=== PATIENT | female | born 1940 | race Hispanic/Latino ===

== ENCOUNTER 2017-11-14 10:16 | Emergency (ER) | payer OTHER ==
--- NOTE | 2017-11-14 11:06 | EDPHYS ---
Physician Documentation [facility] Name: Cydney Deluna Age: 77 yrs Sex: Female : 1940 Arrival Date: 11/14/2017 Time: 10:18 Bed 25 Private MD: None, None ED Physician Linden Land HPI: 11/14 11:43 This 77 yrs old Female presents to ER via Ambulatory with complaints of Pelvic jr8 Problem. 11:43 The patient presents with lesion to pelvic region. Onset: The symptoms/episode jr8 began/occurred gradually, 3 day(s) ago. Modifying factors: The symptoms are alleviated by nothing, the symptoms are aggravated by nothing. Associated signs and symptoms: Pertinent positives: itching. Severity of symptoms: At their worst the symptoms were mild, in the emergency department the symptoms are unchanged. The patient has not experienced similar symptoms in the past. The patient has not recently seen a physician. Historical: - Allergies: 10:34 PENICILLINS; aj 10:34 Sulfa (Sulfonamide Antibiotics); aj 10:34 Codeine; aj - Home Meds: 10:34 atorvastatin oral oral [Active]; bisoprolol-hydrochlorothiazide oral oral [Active]; aj - PMHx: 10:34 Hypertension; Hyperlipidemia; aj - Immunization history:: Adult Immunizations unknown. - Social history:: Smoking status: Patient/guardian denies using tobacco. - Ebola Screening: : Patient negative for fever greater than or equal to 101.5 degrees Fahrenheit, and additional compatible Ebola Virus Disease symptoms. ROS: 11:43 Eyes: Negative for injury, pain, redness, and discharge, ENT: Negative for injury, jr8 pain, and discharge, Neck: Negative for injury, pain, and swelling, Cardiovascular: Negative for chest pain, palpitations, and edema, Respiratory: Negative for shortness of breath, cough, wheezing, and pleuritic chest pain, Abdomen/GI: Negative for abdominal pain, nausea, vomiting, diarrhea, and constipation, Back: Negative for injury and pain, MS/Extremity: Negative for injury and deformity, Skin: Rash/lesion to pelvic region Neuro: Negative for headache, weakness, numbness, tingling, and seizure. Exam: 11:43 Cardiovascular: Regular rate and rhythm with a normal S1 and S2. No gallops, murmurs, jr8 or rubs. Normal PMI, no JVD. No pulse deficits. Respiratory: Lungs have equal breath sounds bilaterally, clear to auscultation and percussion. No rales, rhonchi or wheezes noted. No increased work of breathing, no retractions or nasal flaring. Abdomen/GI: Soft, non-tender, with normal bowel sounds. No distension or tympany. No guarding or rebound. No evidence of tenderness throughout. Back: No spinal tenderness. No costovertebral tenderness. Full range of motion. Skin: Warm, dry with normal turgor. Normal color with no rashes, no lesions, and no evidence of cellulitis. MS/ Extremity: Pulses equal, no cyanosis. Neurovascular intact. Full, normal range of motion. Neuro: Awake and alert, GCS 15, oriented to person, place, time, and situation. Cranial nerves II-XII grossly intact. Motor strength 5/5 in all extremities. Sensory grossly intact. Cerebellar exam normal. Normal gait. 11:43 : Pelvic Exam: External exam: is normal, small 5 mm dark lesion noted to right gluteal cleft region on right side just adjacent to labial region. No fluctuance felt. soft, mild excoriation noted. No pustule seen. Non vesicular , no appreciated Bartholin's cyst, no erythema, not excoriated, no evidence of foreign body, no ulcerations, no warts seen. Vital Signs: 10:34 BP 178 / 88; Pulse 56; Resp 19; Temp 98.0; Pulse Ox 96% on R/A; Weight 56.25 kg; Height aj 4 ft. 11 in. (149.86 cm); 10:34 Body Mass Index 25.04 (56.25 kg, 149.86 cm) aj MDM: 10:44 Patient medically screened. 8 11:02 Data reviewed: vital signs, nurses notes, and as a result, I will discharge patient. jr8 Data interpreted: Pulse oximetry: on room air is 96 %. Interpretation: normal. Counseling: I had a detailed discussion with the patient and/or guardian regarding: the historical points, exam findings, and any diagnostic results supporting the discharge/admit diagnosis, the need for outpatient follow up, for definitive care, a re dye hand, to return to the emergency department if symptoms worsen or persist or if there are any questions or concerns that arise at home. ED course: Discussed with patient that it does not appear to be a comodo or abscess. Slight excoriation to top of the lesion. Will treat with bactroban. If it does not improve within a few days needs to f/u with dermatology . Administered Medications: No medications were administered Disposition: 11/14/17 11:05 Discharged to Home. Impression: Rash and other nonspecific skin eruption. - Condition is Stable. - Discharge Instructions: Rash. - Prescriptions for Bactroban 2 % Topical Ointment - Apply to affected area 1 application by TOPICAL route every 12 hours; 30 gram. - Medication Reconciliation Form, Thank You Letter, Antibiotic Education, Prescription Opioid Use form. - Follow up: Private Physician; When: 5 - 6 days; Reason: Recheck today's complaints, Continuance of care, Re-evaluation by your physician. - Problem is new. - Symptoms have improved. Addendum: 11/16/2017 13:40 Co-signature as Attending Physician, Linden Land MD. g s Signatures: Makayla Posada RN RN ajPau Matos RN RN aj Yash Bradford PA PA jr8 Linden Land MD MD Corrections: (The following items were deleted from the chart) 11/14 11:28 11:05 11/14/2017 11:05 Discharged to Home. Impression: Rash and other nonspecific skin aj1 eruption. Condition is Stable. Forms are Medication Reconciliation Form, Thank You Letter, Antibiotic Education, Prescription Opioid Use. Follow up: Private Physician; When: 5 - 6 days; Reason: Recheck today's complaints, Continuance of care, Re-evaluation by your physician. Problem is new. Symptoms have improved. jr8
--- NOTE | 2017-11-14 11:06 | ER ---
Nurse's Notes [facility] Name: Cydney Deluna Age: 77 yrs Sex: Female : 1940 Arrival Date: 11/14/2017 Time: 10:18 Bed 25 Private MD: None, None Diagnosis: Rash and other nonspecific skin eruption Presentation: 11/14 10:33 Presenting complaint: Patient states: Itchy spot next to right labia majora that aj started 3 days ago. Transition of care: patient was not received from another setting of care. Onset of symptoms was November 11, 2017. Risk Assessment: Do you want to hurt yourself or someone else? Patient reports no desire to harm self or others. Care prior to arrival: None. 10:33 Method Of Arrival: Ambulatory aj 10:33 Acuity: BECCA 4 aj 11:27 Initial Sepsis Screen: Does the patient meet any 2 criteria? No. Patient's initial aj1 sepsis screen is negative. Does the patient have a suspected source of infection? No. Patient's initial sepsis screen is negative. Triage Assessment: 10:34 General: Appears in no apparent distress. comfortable, Behavior is calm, cooperative, aj appropriate for age. Pain: Denies pain. Neuro: Level of Consciousness is awake, alert, obeys commands, Oriented to person, place, time, situation, Appropriate for age. Respiratory: Airway is patent Respiratory effort is even, unlabored, Respiratory pattern is regular, symmetrical. : Reports itching to right labia majora. Derm: Skin is intact, is healthy with good turgor, Skin is pink, warm \T\ dry. normal. Historical: - Allergies: 10:34 PENICILLINS; aj 10:34 Sulfa (Sulfonamide Antibiotics); aj 10:34 Codeine; aj - Home Meds: 10:34 atorvastatin oral oral [Active]; bisoprolol-hydrochlorothiazide oral oral [Active]; aj - PMHx: 10:34 Hypertension; Hyperlipidemia; aj - Immunization history:: Adult Immunizations unknown. - Social history:: Smoking status: Patient/guardian denies using tobacco. - Ebola Screening: : Patient negative for fever greater than or equal to 101.5 degrees Fahrenheit, and additional compatible Ebola Virus Disease symptoms. Screenin:24 Abuse screen: Denies threats or abuse. Denies injuries from another. Nutritional aj1 screening: No deficits noted. Tuberculosis screening: No symptoms or risk factors identified. Fall Risk None identified. Assessment: 11:24 General: Appears in no apparent distress. comfortable. Pain: Denies pain. Neuro: Level aj1 of Consciousness is awake, alert, obeys commands, Oriented to person, place, time, situation. Cardiovascular: Patient's skin is warm and dry. Respiratory: Airway is patent Respiratory effort is even, unlabored, Respiratory pattern is regular, symmetrical. GI: No signs and/or symptoms were reported involving the gastrointestinal system. : Reports vaginal itching. EENT: No signs and/or symptoms were reported regarding the EENT system. Derm: No signs and/or symptoms reported regarding the dermatologic system. Skin is pink, warm \T\ dry. normal. Musculoskeletal: No signs and/or symptoms reported regarding the musculoskeletal system. Circulation, motion, and sensation intact. Vital Signs: 10:34 BP 178 / 88; Pulse 56; Resp 19; Temp 98.0; Pulse Ox 96% on R/A; Weight 56.25 kg; Height aj 4 ft. 11 in. (149.86 cm); 10:34 Body Mass Index 25.04 (56.25 kg, 149.86 cm) aj ED Course: 10:18 Patient arrived in ED. sb2 10:19 None, None is Private Physician. sb2 10:34 Triage completed. aj 10:34 Arm band placed on right wrist. Patient placed in an exam room. aj 10:44 Yash Bradford PA is PHCP. jr8 10:44 Linden Land MD is Attending Physician. jr8 10:51 Makayla Posada, RN is Primary Nurse. aj1 11:05 Assist provider with pelvic exam: Performed by Yash LYNNE. aj1 11:24 Patient has correct armband on for positive identification. Bed in low position. Call aj1 light in reach. 11:24 No provider procedures requiring assistance completed. Patient did not have IV access aj1 during this emergency room visit. Administered Medications: No medications were administered Outcome: 11:05 Discharge ordered by . jr8 11:24 Discharged to home aj1 11:24 Condition: good 11:24 Discharge instructions given to patient, Instructed on discharge instructions, follow up and referral plans. medication usage, Demonstrated understanding of instructions, follow-up care, medications, Prescriptions given X 1. 11:28 Patient left the ED. aj1 Signatures: Makayla Posada RN RN aj1 Pau Silva RN RN aj Yash Bradford PA PA jr8 Milagros Balderas2
[2017-11-14 11:34] VITALS: BP 178/88; TEMP 98; O2SAT 96
== END 2017-11-14 11:28 | disposition home or self-care (01) ==
LOC: ER 10:16
DX: R21 Rash and other nonspecific skin eruption (principal); I10 Essential (primary) hypertension; E78.5 Hyperlipidemia, unspecified; Z88.0 Allergy status to penicillin; Z88.2 Allergy status to sulfonamides; Z88.5 Allergy status to narcotic agent
CPT/HCPCS: 99283

== ENCOUNTER 2018-03-19 10:23 | Emergency (ER) | payer OTHER ==
--- NOTE | 2018-03-19 11:06 | EDPHYS ---
Physician Documentation [facility] Name: Cydney Deluna Age: 78 yrs Sex: Female : 1940 Arrival Date: 03/19/2018 Time: 10:27 Bed 20 Private MD: None, None ED Physician Carlos Enrique Ayon HPI: 03/19 11:05 This 78 yrs old Female presents to ER via Ambulatory with complaints of Rash. kb 11:05 The patient's rash thought to be caused by an unknown cause. The rash is located on the kb under right breast. 11:05 The rash can be described as vesicular. Onset: The symptoms/episode began/occurred kb yesterday. Associated signs and symptoms: Pertinent positives: itching. Severity of symptoms: At their worst the symptoms were moderate in the emergency department the symptoms are unchanged. The patient has not experienced similar symptoms in the past. The patient has not recently seen a physician. Historical: - Allergies: 10:35 Codeine; aa5 10:35 PENICILLINS; aa5 10:35 Sulfa (Sulfonamide Antibiotics); aa5 - PMHx: 10:35 Hyperlipidemia; Hypertension; aa5 - PSHx: 10:35 Hysterectomy; Appendectomy; aa5 - Immunization history:: Pneumococcal vaccine is not up to date, Flu vaccine is not up to date. - Social history:: Smoking status: Patient/guardian denies using tobacco. - Ebola Screening: : No symptoms or risks identified at this time. ROS: 11:03 Constitutional: Negative for fever, chills, and weight loss, Cardiovascular: Negative kb for chest pain, palpitations, and edema, Respiratory: Negative for shortness of breath, cough, wheezing, and pleuritic chest pain, Abdomen/GI: Negative for abdominal pain, nausea, vomiting, diarrhea, and constipation, MS/Extremity: Negative for injury and deformity, Neuro: Negative for headache, weakness, numbness, tingling, and seizure. 11:03 Skin: Positive for rash, of the under right breast. Exam: 11:04 Constitutional: This is a well developed, well nourished patient who is awake, alert, kb and in no acute distress. Head/Face: Normocephalic, atraumatic. Chest/axilla: Normal chest wall appearance and motion. Nontender with no deformity. No lesions are appreciated. Cardiovascular: Regular rate and rhythm with a normal S1 and S2. No gallops, murmurs, or rubs. Normal PMI, no JVD. No pulse deficits. Respiratory: Lungs have equal breath sounds bilaterally, clear to auscultation and percussion. No rales, rhonchi or wheezes noted. No increased work of breathing, no retractions or nasal flaring. Abdomen/GI: Soft, non-tender, with normal bowel sounds. No distension or tympany. No guarding or rebound. No evidence of tenderness throughout. MS/ Extremity: Pulses equal, no cyanosis. Neurovascular intact. Full, normal range of motion. Neuro: Awake and alert, GCS 15, oriented to person, place, time, and situation. Cranial nerves II-XII grossly intact. Motor strength 5/5 in all extremities. Sensory grossly intact. Cerebellar exam normal. Normal gait. 11:04 Skin: rash a moderate rash is noted, rash can be described as vesicular, consistent with zoster, on the under right breast. Vital Signs: 10:35 BP 180 / 98; Pulse 54; Resp 16 S; Temp 98.9(O); Pulse Ox 98% on R/A; Weight 58.97 kg aa5 (R); Height 4 ft. 11 in. (149.86 cm) (R); Pain 0/10; 10:35 Body Mass Index 26.26 (58.97 kg, 149.86 cm) aa5 MDM: 10:39 Patient medically screened. kb 11:03 Data reviewed: vital signs, nurses notes. Data interpreted: Pulse oximetry: on room air kb is 98 %. Interpretation: normal. Counseling: I had a detailed discussion with the patient and/or guardian regarding: the historical points, exam findings, and any diagnostic results supporting the discharge/admit diagnosis, the need for outpatient follow up, a family practitioner, to return to the emergency department if symptoms worsen or persist or if there are any questions or concerns that arise at home. Administered Medications: No medications were administered Disposition: 11:35 Co-signature as Attending Physician, Carlos Enrique Ayon MD. rn Disposition: 03/19/18 11:06 Discharged to Home. Impression: Zoster [herpes zoster]. - Condition is Stable. - Discharge Instructions: Shingles. - Prescriptions for Valtrex 1 g Oral Tablet - take 1 tablet by ORAL route every 8 hours for 7 days; 21 tablet. - Medication Reconciliation Form, Thank You Letter, Antibiotic Education, Prescription Opioid Use form. - Follow up: Emergency Department; When: As needed; Reason: Worsening of condition. Follow up: Private Physician; When: 2 - 3 days; Reason: Recheck today's complaints, Continuance of care, Re-evaluation by your physician. Signatures: Ceci Viera, LEE-C PLATE WORKER-Pau Dunn RN Carlos Enrique Carlos MD MD rn Calderon, Audri, RN RN aa5 Corrections: (The following items were deleted from the chart) 11:15 11:06 03/19/2018 11:06 Discharged to Home. Impression: Zoster [herpes zoster]. aj Condition is Stable. Forms are Medication Reconciliation Form, Thank You Letter, Antibiotic Education, Prescription Opioid Use. Follow up: Emergency Department; When: As needed; Reason: Worsening of condition. Follow up: Private Physician; When: 2 - 3 days; Reason: Recheck today's complaints, Continuance of care, Re-evaluation by your physician. kb
--- NOTE | 2018-03-19 11:06 | ER ---
Nurse's Notes [facility] Name: Cydney Deluna Age: 78 yrs Sex: Female : 1940 Arrival Date: 03/19/2018 Time: 10:27 Bed 20 Private MD: None, None Diagnosis: Zoster [herpes zoster] Presentation: 03/19 10:33 Presenting complaint: Patient states: "I have a rash under my right breast that I aa5 noticed yesterday". Pt denies pain, reports rash it's itchy. 10:33 Transition of care: patient was not received from another setting of care. Onset of aa5 symptoms was March 2018. Risk Assessment: Do you want to hurt yourself or someone else? Patient reports no desire to harm self or others. Initial Sepsis Screen: Does the patient meet any 2 criteria? No. Patient's initial sepsis screen is negative. Does the patient have a suspected source of infection? No. Patient's initial sepsis screen is negative. Care prior to arrival: None. 10:33 Method Of Arrival: Ambulatory aa5 10:33 Acuity: BECCA 5 aa5 Historical: - Allergies: 10:35 Codeine; aa5 10:35 PENICILLINS; aa5 10:35 Sulfa (Sulfonamide Antibiotics); aa5 - PMHx: 10:35 Hyperlipidemia; Hypertension; aa5 - PSHx: 10:35 Hysterectomy; Appendectomy; aa5 - Immunization history:: Pneumococcal vaccine is not up to date, Flu vaccine is not up to date. - Social history:: Smoking status: Patient/guardian denies using tobacco. - Ebola Screening: : No symptoms or risks identified at this time. Screenin:00 Abuse screen: Denies threats or abuse. Denies injuries from another. Nutritional aj screening: No deficits noted. Tuberculosis screening: No symptoms or risk factors identified. Fall Risk None identified. Assessment: 11:00 General: Appears in no apparent distress. comfortable, Behavior is calm, cooperative, aj appropriate for age. Pain: Denies pain. Neuro: Level of Consciousness is awake, alert, obeys commands, Oriented to person, place, time, situation, Appropriate for age. Respiratory: Airway is patent Respiratory effort is even, unlabored, Respiratory pattern is regular, symmetrical. Derm: Rash noted that is vesicular, on right upper quadrant. Vital Signs: 10:35 BP 180 / 98; Pulse 54; Resp 16 S; Temp 98.9(O); Pulse Ox 98% on R/A; Weight 58.97 kg aa5 (R); Height 4 ft. 11 in. (149.86 cm) (R); Pain 0/10; 10:35 Body Mass Index 26.26 (58.97 kg, 149.86 cm) aa5 ED Course: 10:27 Patient arrived in ED. mr 10:27 None, None is Private Physician. mr 10:36 Triage completed. aa5 10:36 Arm band placed on. aa5 10:39 Ceci Viera FNP-C is PHCP. kb 10:39 Carlos Enrique Ayon MD is Attending Physician. kb 11:00 Pau Silva, RN is Primary Nurse. aj 11:00 Patient has correct armband on for positive identification. Bed in low position. Pulse aj ox on. NIBP on. 11:00 No provider procedures requiring assistance completed. Patient did not have IV access aj during this emergency room visit. Administered Medications: No medications were administered Outcome: 11:06 Discharge ordered by . kb 11:15 Discharged to home ambulatory. aj 11:15 Condition: good 11:15 Discharge instructions given to patient, Instructed on discharge instructions, follow up and referral plans. medication usage, wound care, Demonstrated understanding of instructions, follow-up care, medications, wound care, Prescriptions given X 1. 11:15 Patient left the ED. aj Signatures: Ceci Viera FNP-C FNP-Pau Dunn RN RN aj Rivera Tanya Carleen Zavala RN VICTORIANO aa5 Corrections: (The following items were deleted from the chart) 11:01 11:00 Derm: Rash noted that is vesicular, on diaphragm feng toney
[2018-03-19 11:19] VITALS: BP 180/98; TEMP 98.9; O2SAT 98
== END 2018-03-19 11:15 | disposition home or self-care (01) ==
LOC: ER 10:23
DX: B02.9 Zoster without complications (principal); Z88.6 Allergy status to analgesic agent; Z88.0 Allergy status to penicillin; Z88.2 Allergy status to sulfonamides
CPT/HCPCS: 99283

== ENCOUNTER 2024-03-30 19:35 | Inpatient (IN) | payer OTHER ==
[2024-03-30 20:03] LABS: Absolute Eosinophils 0.1 K/uL (0-0.5); Absolute Lymphocytes (CBC) 1.1 K/uL (0.7-4.9); Absolute Monocytes 0.3 K/uL (0.1-1.3); Absolute Neutrophil 2.8 K/uL (1.8-8.0); Eosinophils % 1.5 % (0-4.4); Hemoglobin 11.3 g/dL (12.0-15.0); Lymphocytes % 26.1 % (15.3-44.8); MCH 30.5 pg (27.0-35.0); MCHC 34.1 g/dL (32.0-36.0); MCV 89.3 fL (80-100); MPV 8.4 fL (7.6-11.3); Monocytes % 6.6 % (3.3-12.3); Neutrophils % 64.8 % (41.7-73.7); Nucleated Red Blood Cells % 0.1 % (0-0); Platelets 238 thou/uL (152-406); Red Cell Distribution Width 13.9 % (12.1-15.2)
[2024-03-30 20:40] LABS: Anion Gap 9.4 mEq/L (5.0-15.0); Potassium 3.4 mEq/L (3.5-5.1)
--- NOTE | 2024-03-30 22:02 | RAD REPORT ---
EXAM: CT brain without contrast HISTORY: GLF COMPARISON: None TECHNIQUE: Multiple contiguous axial images were obtained and a CT of the brain without contrast. Sag ittal and coronal reformats were performed. FINDINGS:No evidence of hydrocephalus, intracranial hemorrhage, or extra-axial fluid collection. Mild brain atrophy with mild periventricular and deep white matter chronic microvascular ischemic ch anges present. The calvarium is intact. The visualized paranasal sinuses and mastoid air cells are essentially clear . IMPRESSION: No evidence of acute intracranial abnormality. Presumed sequelae of chronic small vessel ischemic changes as above. EXAM: CT of the cervical spine without contrast HISTORY: GLF COMPARISON: None TECHNIQUE: Multiple contiguous axial images were obtained in a CT of the cervical spine without contr ast. Sagittal and coronal reformats were performed. FINDINGS: The vertebral bodies demonstrate normal height and alignment. No evidence of acute fracture or subluxation.. Mild degenerative changes are present throughout the cervical spine. No prevertebral soft tissue swelling is seen. The posterior facets are well aligned. Normal alignment of the skull base with the cervical spine is seen. The lung apices are unremarkable. IMPRESSION: No evidence of acute osseous abnormality of the cervical spine. Mild degenerative changes throughout the cervical spine.
--- NOTE | 2024-03-30 22:08 | RAD REPORT ---
EXAMINATION: CT PELVIS WITHOUT CONTRAST CLINICAL INDICATION: Female, 84 years old.Ground-level fall TECHNIQUE: CT pelvis was performed, without IV contrast, as per department protocol. Axial, sagittal and coronal reconstructions were obtained. One or more of the following dose reduction techniques were used: Automated exposure control, adjustment of the mA and/or kV according to patient size, and/ or iterative reconstruction. Unless otherwise specified, incidental findings do not require dedicated imaging follow-up. COMPARISON: No prior exam. FINDINGS: The lack of intravenous contrast limits the sensitivity of this exam for evaluation of solid visceral organs, vascular structures, and retroperitoneum. MUSCULOSKELETAL: Mildly displaced right superior pubic ramus fracture near the junction with the pubi c bone. Chronic appearing mildly displaced nonhealed fracture of the left inferior pubic ramus. URINARY SYSTEM: No abnormalities of the included kidneys and ureters. Urinary bladder is unremarkable . GASTROINTESTINAL TRACT: Included small bowel is normal in caliber. No wall thickening or bowel inflam matory changes. LYMPH NODES: No lymphadenopathy. ABDOMINAL AORTA AND OTHER VESSELS: Normal caliber aorta and IVC. ADDITIONAL FINDINGS: Soft tissue swelling and nonlocalized hematoma adjacent to the fracture, extendi ng along the right pelvic sidewall and extraperitoneal space. IMPRESSION: Mildly displaced right superior pubic ramus fracture. Adjacent soft tissue swelling and nonlocalized hematoma as above.
--- NOTE | 2024-03-30 22:12 | RAD REPORT ---
EXAMINATION: CT LUMBAR SPINE WITHOUT CONTRAST CLINICAL INDICATION: Female, 84 years old. GLF TECHNIQUE: Axial CT images were obtained through the lumbar spine in soft tissue and bone windows wit hout intravenous contrast. Coronal and Sagittal reformatted images were created from the data set. One or more of the following dose reduction techniques were used: Automated exposure control, adjustm ent of the mA and/ or kV according to patient size, and/or iterative reconstruction. Unless otherwise specified, incidental findings do not require dedicated imaging follow-up. COMPARISON: No prior exam. FINDINGS: For purposes of this dictation, it is assumed that there are 5 non rib-bearing lumbar type vertebrae, and the most caudal fully segmented lumbar vertebra is labeled L5. ALIGNMENT: The lumbar spine demonstrates normal alignment without scoliosis or spondylolisthesis. BONES: Mildly displaced and comminuted fractures involving S1 near the junction with the left sacral ala, extending towards the. Margin of the S1-2 neural foramen. DISCS: Intervertebral disc space heights are maintained. Mild degenerative changes with posterior dis c bulges at L3-4 through L5-S1. LEVELS: No significant spinal canal or neural foraminal stenosis. No visualized abnormality within th e spinal canal. SOFT TISSUE: No soft tissue abnormalities. IMPRESSION: Mildly displaced and comminuted fractures involving S1 near the junction with the left sacral ala.
--- NOTE | 2024-03-30 22:41 | EDPHYS ---
Physician Documentation [facility] Name: Cydney Deluna Age: 84 yrs Sex: Female : 1940 Arrival Date: 03/30/2024 Time: 19:35 Bed 4 Private MD: ED Physician Prosper Wasserman HPI: 03/30 19:48 This 84 yrs old Female presents to ER via EMS with complaints of Fall Injury. ec2 19:48 Patient arrives today for evaluation after ground-level fall. States that she struck ec2 her head. No LOC, not on blood thinners, complaining of head pain, low back pain as well as hip pain.. Historical: - Allergies: 19:47 Codeine; bp 19:47 PENICILLINS; bp 19:47 Sulfa (Sulfonamide Antibiotics); bp - PMHx: 19:47 Hyperlipidemia; Hypertension; Dementia; bp - PSHx: 19:47 None; bp - Immunization history:: Adult Immunizations up to date. - Infectious Disease History:: Denies. - Immunization history: Last tetanus immunization: - up to date. - Social history:: Smoking status: Patient denies any tobacco usage or history of. ROS: 19:48 Constitutional: as per hpi ec2 Exam: 19:48 Constitutional: GEN: No acute distress HEENT: -Head: no deformities -Eyes: EOMI CV: ec2 regular rate LUNGS: no respiratory distress ABD: non-tender SKIN: no wounds appreciated MSK: No C/T/L spine deformities, L-spine TTP, right pelvis TTP RUE w/o bony deformity LUE w/o bony deformity RLE w/o bony deformity LLE w/o bony deformity NEURO: moves all extremities equally, GCS 15 (E4, V5, M6) Vital Signs: 19:46 BP 166 / 86; Pulse 98; Resp 16; Temp 98.3; Pulse Ox 95% on R/A; Weight 61.23 kg; Height bp 4 ft. 11 in. ; Pain 3/10; 20:00 BP 159 / 68; Pulse 67; Resp 18; Pulse Ox 96% on R/A; al5 20:30 BP 147 / 64; Pulse 78; Resp 18; Pulse Ox 95% on R/A; al5 21:00 BP 151 / 73; Pulse 70; Resp 18; Pulse Ox 95% on R/A; al5 22:30 BP 165 / 84; Pulse 75; Resp 16; Pulse Ox 97% ; dd2 23:20 BP 186 / 77; Pulse 70; Resp 17; Pulse Ox 96% ; dd2 03/31 01:15 BP 163 / 78; Pulse 74; Resp 16; Pulse Ox 97% ; dd2 03:00 BP 177 / 80; Pulse 75; Resp 16; Pulse Ox 97% ; dd2 03:00 BP 159 / 76; Pulse 72; Resp 16; Pulse Ox 96% ; dd2 03/30 19:46 Body Mass Index 27.27 (61.23 kg, 149.86 cm) bp 03/30 19:46 Pain Scale: Adult bp [place] Com[place] Score: 03/30 19:46 Eye Response: spontaneous(4). Motor Response: obeys commands(6). Verbal Response: bp confused(4). Total: 14. Trauma Score (Adult): 19:46 Eye Response: spontaneous(1); Verbal Response: confused(1); Motor Response: obeys bp commands(2); Systolic BP: > 89 mm Hg(4); Respiratory Rate: 10 to 29 per min(4); [place] Score: 14; Trauma Score: 12 MDM: 19:39 Medical Screening Exam initiated ec2 19:48 Data reviewed: vital signs. ED course: Patient arrives today for evaluation of her ec2 ground-level fall. Examination remarkable for MSK findings as noted above. Will obtain CT imaging to evaluate for bony pathology.. 22:13 ED course: EXAM: CT brain without contrast HISTORY: GLF COMPARISON: None TECHNIQUE: sp4 Multiple contiguous axial images were obtained and a CT of the brain without contrast. Sagittal and coronal reformats were performed. FINDINGS:No evidence of hydrocephalus, intracranial hemorrhage, or extra-axial fluid collection. Mild brain atrophy with mild periventricular and deep white matter chronic microvascular ischemic changes present. The calvarium is intact. The visualized paranasal sinuses and mastoid air cells are essentially clear. IMPRESSION: No evidence of acute intracranial abnormality. Presumed sequelae of chronic small vessel ischemic changes as above. EXAM: CT of the cervical spine without contrast HISTORY: GLF COMPARISON: None TECHNIQUE: Multiple contiguous axial images were obtained in a CT of the cervical spine without contrast. Sagittal and coronal reformats were performed. FINDINGS: The vertebral bodies demonstrate normal height and alignment. No evidence of acute fracture or subluxation.. Mild degenerative changes are present throughout the cervical spine. No prevertebral soft tissue swelling is seen. The posterior facets are well aligned. Normal alignment of the skull base with the cervical spine is The lung apices are unremarkable. IMPRESSION: No evidence of acute osseous abnormality of the cervical spine. Mild degenerative changes throughout the cervical spine. . ED course: EXAMINATION: CT PELVIS WITHOUT CONTRAST CLINICAL INDICATION: Female, 84 years old.Ground-level fall TECHNIQUE: CT pelvis was performed, without IV contrast, as per department protocol. Axial, sagittal and coronal reconstructions were obtained. One or more of the following dose reduction techniques were used: Automated exposure control, adjustment of the mA and/or kV according to patient size, and/or iterative reconstruction. Unless otherwise specified, incidental findings do not require dedicated imaging follow-up. COMPARISON: No prior exam. FINDINGS: The lack of intravenous contrast limits the sensitivity of this exam for evaluation of solid visceral organs, vascular structures, and retroperitoneum. MUSCULOSKELETAL: Mildly displaced right superior pubic ramus fracture near the junction with the pubic bone. Chronic appearing mildly displaced nonhealed fracture of the left inferior pubic ramus. URINARYSYSTEM: No abnormalities of the included kidneys and ureters. Urinary bladder is unremarkable. GASTROINTESTINAL TRACT: Included small bowel is normal in caliber. No wall thickening or bowel inflammatory changes. LYMPH NODES: No lymphadenopathy. ABDOMINAL AORTA AND OTHER VESSELS: Normal caliber aorta and IVC. ADDITIONAL FINDINGS: Soft tissue swelling and nonlocalized hematoma adjacent to the fracture, extending along the right pelvic sidewall and extraperitoneal space. IMPRESSION: Mildly displaced right superior pubic ramus fracture. Adjacent soft tissue swelling and nonlocalized hematoma as above. . 22:15 ED course: EXAMINATION: CT LUMBAR SPINE WITHOUT CONTRAST CLINICAL INDICATION: Female, sp4 84 years old. GLF TECHNIQUE: Axial CT images were obtained through the lumbar spine in soft tissue and bone windows without intravenous contrast. Coronal and Sagittal reformatted images were created from the data set. One or more of the following dose reduction techniques were used: Automated exposure control, adjustment of the mA and/ or kV according to patient size, and/or iterative reconstruction. Unless otherwise specified, incidental findings do not require dedicated imaging follow-up. COMPARISON: No prior exam. FINDINGS: For purposes of this dictation, it is assumed that there are 5 non rib-bearing lumbar type vertebrae, and the most caudal fully segmented lumbar vertebra is labeled L5. ALIGNMENT: The lumbar spine demonstrates normal alignment without scoliosis or spondylolisthesis. BONES: Mildly displaced and comminuted fractures involving S1 near the junction with the left sacral ala, extending towards the. Margin of the S1-2 neural foramen. DISCS: Intervertebral disc space heights are maintained. Mild degenerative changes with posterior disc bulges at L3-4 through L5-S1. LEVELS: No significant spinal canal or neural foraminal stenosis. No visualized abnormality within the spinal canal. SOFT TISSUE: No soft tissue abnormalities. IMPRESSION: Mildly displaced and comminuted fractures involving S1 near the junction with the left sacral ala. . 22:35 Differential diagnosis: abrasion, closed head injury, contusion, fracture, laceration, sp4 multiple trauma, sprain, strain. Consideration of Admission/Observation Patient was admitted/placed on observation. Escalation of care including admission/observation considered. Management of patient was discussed with the following: Hospitalist: Adilson PIERRE . Splitter Operator: Jeremías PIERRE . ED course: Patient apparently sustained right superior pubic ramus fracture with some displacement and also left S1 fracture near the sacral Ala. patient not able to ambulate unassisted. Will request admission for physical therapy and orthopedic assessment.. 03/30 19:45 Order name: CBC with Diff; Complete Time: 21:15 ec2 03/30 19:45 Order name: BMP; Complete Time: 21:15 ec2 03/30 19:45 Order name: UAM ec2 03/30 22:35 Order name: PT-INR; Complete Time: 03:27 sp4 03/30 23:10 Order name: Urinalysis w/ reflexes EDMS 03/30 23:10 Order name: CBC with Automated Diff EDMS 03/30 23:10 Order name: CBC with Automated Diff EDMS 03/30 23:10 Order name: Comprehensive Metabolic Panel EDMS 03/30 23:10 Order name: Comprehensive Metabolic Panel EDMS 03/30 23:10 Order name: Magnesium EDMS 03/30 23:10 Order name: Magnesium EDMS 03/30 23:10 Order name: Phosphorus EDMS 03/30 23:10 Order name: Phosphorus EDMS 03/30 19:45 Order name: CT Head C Spine; Complete Time: 22:37 ec2 03/30 19:45 Order name: CT Pelvis wo Cont; Complete Time: 22:37 ec2 03/30 19:45 Order name: CT Lumbar Spine Wo Con; Complete Time: 22:37 ec2 03/30 20:07 Order name: Misc. Order: recollect green top ; Complete Time: 20:16 kmf Administered Medications: 23:19 Drug: Ondansetron PO 4 mg PO once Route: PO; dd2 23:49 Follow up: Response: No adverse reaction dd2 23:20 Drug: HYDROcodone-acetaminophen PO 5 mg-325 mg 2 tabs PO once Route: PO; dd2 23:49 Follow up: Response: No adverse reaction dd2 23:20 Drug: Methocarbamol PO 1500 mg PO once Route: PO; dd2 23:49 Follow up: Response: No adverse reaction dd2 03/31 03:41 Drug: Geodon IM 20 mg IM once Route: IM; Site: right deltoid; al5 03:56 Follow up: Response: No adverse reaction dd2 04:16 Follow up: Response: No adverse reaction; RASS: Agitated (+2) al5 04:16 Drug: Diazepam PO 5 mg PO once Route: PO; al5 04:46 Follow up: Response: No adverse reaction dd2 Disposition Summary: 03/30/24 22:40 Hospitalization Ordered Notes: Hospitalization Status: Inpatient Admission sp4 Provider: Arias De Anda spEvin Condition: Stable sp4 Problem: new sp4 Symptoms: have improved sp4 Bed/Room Type: Standard sp4 Location: Telemetry/MedSurg (Inpatient)(03/31/24 18:37) Room Assignment: [facility](03/31/24 21:11) kl Diagnosis - Right superior pubic ramus fracture with displacement,, Left S1 fracture sp4 comminuted and displaced at the sacral ala , Impaired ambulation, acute fall at home Forms: - Medication Reconciliation Form sp4 - SBAR form sp4 - Leadership Thank You Letter sp4 Signatures: Dispatcher [employer] Lashay Estrada Kimberly, RN RN kl Blanchard, Shelby, RN RN ss Peltier, Brian, RN RN bp Calcote, Vanessa, RN RN Madai Torres Sergey, MD MD sp4 Rahul Benson MD MD 2 Samantha Rousseau [facility] Pau Escamilla, RN RN al5 ESTUARDO LANG RN RN dd2 Curly Reddy rs6 Corrections: (The following items were deleted from the chart) 03/30 19:45 19:45 CBC+H.LAB.BRZ ordered. EDMS EDMS 19:45 19:45 BASIC METABOLIC PANEL+C.LAB.BRZ ordered. EDMS EDMS 19:45 19:45 Urinalysis W/Microscopic+U.LAB.BRZ ordered. EDMS EDMS 20:04 19:49 Immunization history Last tetanus immunization: - up to date. bp al5 03/31 00:23 03/30 22:40 Telemetry/MedSurg (Inpatient) sp4 vc1 03/31 00:23 03/30 22:40 sp4 vc1 03/31 14:24 00:23 [facility] ER HOLD vc1 rs6 14:24 00:23 ERHOLD- vc1 rs6 14:37 14:24 Telemetry/MedSurg (Inpatient) rs6 ss 14:37 14:24 213 rs6 ss 14:38 14:37 ss ss 18:37 14:37 [facility] ER HOLD ss bd 18:37 14:38 ERHOLD- ss bd 19:08 18:37 221 bd rv1 21:11 19:08 rv1 kl
--- NOTE | 2024-03-30 22:41 | ER ---
Nurse's Notes [facility] Name: Cydney Deluna Age: 84 yrs Sex: Female : 1940 Arrival Date: 03/30/2024 Time: 19:35 Bed 4 Private MD: Diagnosis: Right superior pubic ramus fracture with displacement,, Left S1 fracture comminuted and displaced at the sacral ala , Impaired ambulation, acute fall at home Presentation: 03/30 19:41 Chief complaint: EMS states: coming from [facility] for a al5 mechanical fall, c/o pain to R side groin area, has skin tear to L side elbow and hematoma to L side face. pain rated about 3/10. Care prior to arrival: Medication(s) given: toradol 15 mg IV IV initiated. 20 GA, in the right wrist. Mechanism of Injury: Fall. Trauma event details: Injury occurred in the [facility], Injury occurred: [facility] Injury occurred: March 30, 2024. 19:41 Acuity: BECCA 4 al5 19:41 Method Of Arrival: EMS: [facility] al5 19:47 Coronavirus screen: At this time, the client does not indicate any symptoms associated al5 with coronavirus-19. Ebola Screen: No symptoms or risks identified at this time. Initial Sepsis Screen: Does the patient meet any 2 criteria? No. Patient's initial sepsis screen is negative. Does the patient have a suspected source of infection? No. Patient's initial sepsis screen is negative. Risk Assessment: Do you want to hurt yourself or someone else? Patient reports no desire to harm self or others. Onset of symptoms was March 30, 2024. Triage Assessment: 19:48 General: see trauma assessment. bp Trauma Activation: Physician: ED Physician; Name: ; Notified At: ; Arrived At: Physician: General Surgeon; Name: ; Notified At: ; Arrived At: Physician: Radiology; Name: ; Notified At: ; Arrived At: Physician: Respiratory; Name: ; Notified At: ; Arrived At: Physician: Lab; Name: ; Notified At: ; Arrived At: 19:41 no trauma activation al5 Historical: - Allergies: 19:47 Codeine; bp 19:47 PENICILLINS; bp 19:47 Sulfa (Sulfonamide Antibiotics); bp - PMHx: 19:47 Hyperlipidemia; Hypertension; Dementia; bp - PSHx: 19:47 None; bp - Immunization history:: Adult Immunizations up to date. - Infectious Disease History:: Denies. - Immunization history: Last tetanus immunization: - up to date. - Social history:: Smoking status: Patient denies any tobacco usage or history of. Screenin:47 Abuse screen: Denies threats or abuse. Denies injuries from another. Nutritional al5 screening: No deficits noted. Tuberculosis screening: No symptoms or risk factors identified. 19:48 [facility] ED Fall Risk Assessment (Adult) History of falling in the last 3 months, bp including since admission Yes- single mechanical fall (1 pt) Confusion or Disorientation Yes (5 pts) Intoxicated or Sedated No (0 pts) Impaired Gait No (0 pts) Mobility Assist Device Used No (0 pt) Altered Elimination No (0 pt) Score/Fall Risk Level 3 or more points = High Risk Oriented to surroundings, Maintained a safe environment, Hourly rounding (assess needs \T\ fall precautionary measures) done, Utilized family, sitter, or virtual set up mechanic heading machines as indicated. Primary Survey: 19:45 NO uncontrolled hemorrhage observed. A: The client is awake and alert. The airway is bp patent. The client is alert. Airway: patent, No supplemental oxygen in use on arrival. Breathing/Chest: Spontaneous respiratory effort, equal unlabored respirations, breath sounds clear bilaterally, regular pattern, symmetrical chest rise and fall. Respiratory effort: spontaneous, unlabored, Respiratory pattern: regular. Circulation: No external hemorrhage present. Regular and strong central pulse, skin warm/dry/normal color. Skin color: pink, Skin temperature: warm, dry. Disability Pupils are equal, round, reactive to light and accommodation. Client is alert. Exposure/Environment: A warming method has been applied: A warm blanket has been provided to the patient. Secondary Survey: 19:45 HEENT: No deficits noted. Gastrointestinal: No deficits noted. : No deficits noted. bp Musculoskeletal: Reports pain in groin. skin tear to L elbow and hematoma to L side face. Assessment: 19:43 General: Appears in no apparent distress. Behavior is calm, cooperative. Pain: al5 Complains of pain in groin Pain currently is 3 out of 10 on a pain scale. Neuro: Level of Consciousness is awake, alert, obeys commands, Oriented to baseline, hx of alzheimers. EENT: No signs and/or symptoms were reported regarding the EENT system. Cardiovascular: Capillary refill < 3 seconds Patient's skin is warm and dry. Respiratory: Airway is patent Respiratory effort is even, unlabored, Respiratory pattern is regular, symmetrical. GI: No signs and/or symptoms were reported involving the gastrointestinal system. : No signs and/or symptoms were reported regarding the genitourinary system. Derm: Wound noted left elbow hematoma L side face. Musculoskeletal: Reports pain in groin. 21:00 Reassessment: Patient appears in no apparent distress at this time. No changes from al5 previously documented assessment. Patient and/or family updated on plan of care and expected duration. Pain level reassessed. Patient is alert, oriented x 3, equal unlabored respirations, skin warm/dry/pink. Vital Signs: 19:46 BP 166 / 86; Pulse 98; Resp 16; Temp 98.3; Pulse Ox 95% on R/A; Weight 61.23 kg; Height bp 4 ft. 11 in. ; Pain 3/10; 20:00 BP 159 / 68; Pulse 67; Resp 18; Pulse Ox 96% on R/A; al5 20:30 BP 147 / 64; Pulse 78; Resp 18; Pulse Ox 95% on R/A; al5 21:00 BP 151 / 73; Pulse 70; Resp 18; Pulse Ox 95% on R/A; al5 22:30 BP 165 / 84; Pulse 75; Resp 16; Pulse Ox 97% ; dd2 23:20 BP 186 / 77; Pulse 70; Resp 17; Pulse Ox 96% ; dd2 03/31 01:15 BP 163 / 78; Pulse 74; Resp 16; Pulse Ox 97% ; dd2 03:00 BP 177 / 80; Pulse 75; Resp 16; Pulse Ox 97% ; dd2 03:00 BP 159 / 76; Pulse 72; Resp 16; Pulse Ox 96% ; dd2 03/30 19:46 Body Mass Index 27.27 (61.23 kg, 149.86 cm) bp 03/30 19:46 Pain Scale: Adult bp [place] Coma Score: 03/30 19:46 Eye Response: spontaneous(4). Motor Response: obeys commands(6). Verbal Response: bp confused(4). Total: 14. Trauma Score (Adult): 19:46 Eye Response: spontaneous(1); Verbal Response: confused(1); Motor Response: obeys bp commands(2); Systolic BP: > 89 mm Hg(4); Respiratory Rate: 10 to 29 per min(4); [place] Score: 14; Trauma Score: 12 ED Course: 19:37 Patient arrived in ED. dd2 19:39 Rahul Benson MD is Attending Physician. ec2 19:41 Jared Chau, RN is Primary Nurse. bp 19:41 Maintain EMS IV. Dressing intact. Good blood return noted. Site clean \T\ dry. Gauge \T\ dd 2 site: 20G RT WRIST. Flushed with 10 mL NS. 19:43 Triage completed. bp 19:47 Patient maintains SpO2 saturation greater than 95% on room air. bp 19:47 Patient has correct armband on for positive identification. Bed in low position. Call bp light in reach. Side rails up X2. 19:49 No provider procedures requiring assistance completed. bp 19:49 Thermoregulation: warm blanket given to patient. bp 19:49 Provided Education on: plan of care. bp 19:49 Arm band placed on left wrist. Patient placed in the treatment room, on a stretcher. bp 19:55 BMP Sent. dd2 19:55 CBC with Diff Sent. dd2 19:55 Initial lab(s) drawn, by me, sent to lab. dd2 20:05 Primary Nurse role handed off by Jared Chau, VICTORIANO al5 20:05 Pau Escamilla, VICTORIANO is Primary Nurse. al5 20:06 Attending Physician role handed off by Rahul Benson MD ec2 20:06 Prosper Wasserman MD is Attending Physician. ec2 20:25 CT Head C Spine In Process Unspecified. EDMS 20:25 CT Pelvis wo Cont In Process Unspecified. EDMS 20:25 CT Lumbar Spine Wo Con In Process Unspecified. EDMS 22:39 Arias De Anda MD is Hospitalizing Provider. sp4 22:55 PT-INR Sent. dd2 23:[address]. dd2 03/31 06:59 Primary Nurse role handed off by Pau Escamilla, VICTORIANO bd 20:03 Maribell Monzon, RN is Primary Nurse. kd3 Administered Medications: 03/30 23:19 Drug: Ondansetron PO 4 mg PO once Route: PO; dd2 23:49 Follow up: Response: No adverse reaction dd2 23:20 Drug: HYDROcodone-acetaminophen PO 5 mg-325 mg 2 tabs PO once Route: PO; dd2 23:49 Follow up: Response: No adverse reaction dd2 23:20 Drug: Methocarbamol PO 1500 mg PO once Route: PO; dd2 23:49 Follow up: Response: No adverse reaction dd2 03/31 03:41 Drug: Geodon IM 20 mg IM once Route: IM; Site: right deltoid; al5 03:56 Follow up: Response: No adverse reaction dd2 04:16 Follow up: Response: No adverse reaction; RASS: Agitated (+2) al5 04:16 Drug: Diazepam PO 5 mg PO once Route: PO; al5 04:46 Follow up: Response: No adverse reaction dd2 Medication: 03/30 19:48 VIS not applicable for this client. bp Intake: 19:46 n/a bp Outcome: 22:40 Decision to Hospitalize by Provider. sp4 03/31 21:35 Patient left the ED. kd3 Signatures: Dispatcher [employer] EDMS Lashay Robison Brian, RN RN bp Maribell Monzon RN RN kd3 Prosper Wasserman MD MD sp4 Rahul Benson MD MD ec2 Pau Escamilla RN RN al5 ESTUARDO LANG RN RN dd2 Corrections: (The following items were deleted from the chart) 03/30 20:03 19:41 Chief complaint: EMS states: coming from [facility] for a al5 mechanical fall, c/o pain to R side groin area, has skin tear to L side elbow and hematoma to L side face. pain rated about 3/10. bp 20:03 19:41 Care prior to arrival: Medication(s) given: toradol 15 mg IV IV initiated. 20 GA, al5 in the right wrist, bp 20:03 19:41 Trauma event details: Injury occurred in the [facility], Injury occurred: al5 [facility] Injury occurred: March 30, 2024 bp 20:03 19:41 Mechanism of Injury: Fall bp al5 20:03 19:41 Acuity: BECCA 4 bp al5 20:03 19:41 Method Of Arrival: EMS: [facility] bp al5 20:03 19:41 no trauma activation bp al5 20:03 19:47 Coronavirus screen: At this time, the client does not indicate any symptoms al5 associated with coronavirus-19. bp 20:03 19:47 Ebola Screen: No symptoms or risks identified at this time. bp al5 20:03 19:47 Initial Sepsis Screen: Does the patient meet any 2 criteria? No. Patient's al5 initial sepsis screen is negative. Does the patient have a suspected source of infection? No. Patient's initial sepsis screen is negative. bp 20:03 19:47 Risk Assessment: Do you want to hurt yourself or someone else? Patient reports no al5 desire to harm self or others. bp 20:03 19:47 Onset of symptoms was March 30, 2024 bp al5 20:04 19:43 General: Appears in no apparent distress. Behavior is calm, cooperative, bp al5 20:04 19:43 Pain: Complains of pain in groin Pain currently is 3 out of 10 on a pain scale. bpal5 20:04 19:43 Neuro: Level of Consciousness is awake, alert, obeys commands, Oriented to al5 baseline, hx of alzheimers. bp 20:04 19:43 EENT: No signs and/or symptoms were reported regarding the EENT system. bp al5 20:04 19:43 Cardiovascular: Capillary refill < 3 seconds Patient's skin is warm and dry. bp al5 20:04 19:43 Respiratory: Airway is patent Respiratory effort is even, unlabored, Respiratory al5 pattern is regular, symmetrical, bp 20:04 19:43 GI: No signs and/or symptoms were reported involving the gastrointestinal system. al5 bp 20:04 19:43 : No signs and/or symptoms were reported regarding the genitourinary system. bp al5 20:04 19:43 Derm: Wound noted left elbow hematoma L side face bp al5 20:04 19:43 Musculoskeletal: Reports pain in groin bp al5 20:04 19:47 Abuse screen: Denies threats or abuse. Denies injuries from another. bp al5 20:04 19:47 Nutritional screening: No deficits noted. bp al5 20:04 19:47 Tuberculosis screening: No symptoms or risk factors identified. bp al5 20:04 19:49 Immunization history Last tetanus immunization: - up to date. al5
--- NOTE | 2024-03-30 23:00 | P.HP ---
Certification for Inpatient Patient admitted to: Inpatient With expected LOS: >2 Midnights Practitioner: I am a practitioner with admitting privileges, knowledge of patient current condition, hospital course, and medical plan of care. Services: Services provided to patient in accordance with Admission requirements found in Title 42 Section 412.3 of the Code of Federal Regulations Patient History Date of Service: 03/31/24 Reason for admission: Pain in hip History of Present Illness: 84 yrs old Female with past medical history of hypertension, hyperlipidemia, dementia presents to ER with complaints of Fall Injury. Patient arrives today for evaluation after ground-level fall. States that she struck her head. No LOC, not on blood thinners, complaining of pain in head , low back pain as well as hip pain. Patient is a poor historian hence most of the history is obtained from the chart review and also talking to the ER physician. Patient denies any chest pain or shortness of breath. No fever or chills. Denies any nausea vomiting or diarrhea. No seizure-like activities Denies any dizziness or syncope Patient was assessed in the ER and was admitted for further management. She had a CT of the pelvis as well as LS-spine which showed pubic Rami fracture right side and Mildly displaced and comminuted fractures involving S1 near the junction with the left sacral ala.. Allergies codeine [Codeine] Allergy (Intermediate, Verified 09/29/15 10:08) Itching Penicillins Allergy (Intermediate, Verified 09/29/15 10:08) Itching/rash Sulfa (Sulfonamide Antibiotics) [Sulfa(Sulfonamide Antibiotics)] Allergy (Intermediate, Verified 09/29/15 10:08) Itching/rash Home medications list reviewed: Yes Home Medications: Bisoprolol/Hctz [Ziac 6.25] 1 tab PO DAILY 09/29/15 Simvastatin 80 mg PO DAILY 09/29/15 Aspirin 325 mg PO DAILY 10/03/15 - Past Medical/Surgical History Past Medical History: Reviewed- Non-Contributory Past Surgical History: Reviewed- Non-Contributory - Family History Family History: Reviewed- Non-Contributory - Social History Smoking Status: Never smoker Review of Systems is unable to be obtained Physical Examination - Vital Signs Temperature: 97.5 F Blood Pressure: 132/76 Pulse: 78 Respirations: 18 Pulse Ox (%): 94 - Physical Exam General: Alert, Oriented x1, Demented, Confused HEENT: Atraumatic, Normocephalic Neck: Supple Respiratory: Clear to auscultation bilaterally, Normal air movement Cardiovascular: Regular rate/rhythm, Normal S1 S2 Capillary refill: <2 Seconds Gastrointestinal: Soft and benign, W/out hepatosplenomegaly Musculoskeletal: No clubbing, No swelling Integumentary: No rashes, No breakdown Neurological: Normal speech, Other (Alert, Demented ) Lymphatics: No axilla or inguinal lymphadenopathy - Studies Laboratory Data (last 24 hrs) 03/30/24 03/30/24 20:16 19:51 WBC 4.30 Hgb 11.3 L Hct 33.0 L Plt Count 238 Sodium 140 Potassium 3.4 L BUN 16 Creatinine 0.98 Glucose 144 H Assessment and Plan - Plan Mildly displaced and comminuted fractures involving S1 near the junction with the left sacral ala. Pubic Rami fracture right side Pain control Monitor closely Orthopedic consult PT eval May need placement Hypertension Continue home medications and titrate as needed Hyperlipidemia Continue statin Dementia Supportive management GI/DVT prophylaxis Advanced directive full code Discharge Plan: Half-Way Plan to discharge in: 48 Hours - Advance Directives Does patient have a Living Will: No Does patient have a Durable POA for Healthcare: No - Code Status/Comfort Care Code Status: Full Code Time Spent Managing Pts Care (In Minutes): 48
[2024-03-30] MEDS ORDERED: ONDANSETRON 4 MG/2 ML VIAL IV PRN (23:01)
[2024-03-30] MEDS ORDERED: ALBUTEROL 2.5 MG/3 ML NEB SOL NEB PRN (23:01)
[2024-03-30 23:02] LABS: PT Prothrombin Time 10.5 SECONDS (9.4-12.5); Protime INR 0.94
[2024-03-30] MEDS ORDERED: ONDANSETRON 4 MG (ODT) TAB ONE (23:14)
[2024-03-30] MEDS ORDERED: methocarbamoL 750 MG TAB ONE (23:14)
[2024-03-30] MEDS ORDERED: HYDROCODONE/APAP 5/325 MG TAB ONE (23:15)
[2024-03-31] MEDS: QUETIAPINE 25 MG TAB ONE (02:39)
[2024-03-31] MEDS ORDERED: WATER FOR INJ,STERILE 10 ML ONE (03:23)
[2024-03-31] MEDS ORDERED: ZIPRASIDONE MESYLA 20 MG/VIAL IM ONE (03:23)
[2024-03-31] MEDS ORDERED: DIAZEPAM 5 MG TABLET ONE (04:06)
[2024-03-31] MEDS ORDERED: MORPHINE 2 MG/ML SYR IV PRN (04:31)
[2024-03-31 05:46] LABS: Absolute Lymphocytes (CBC) 0.7 K/uL (0.7-4.9); Absolute Monocytes 0.5 K/uL (0.1-1.3); Absolute Neutrophil 5.8 K/uL (1.8-8.0); Basophils % 0.6 % (0-1.3); Eosinophils % 0.3 % (0-4.4); Hemoglobin 11.6 g/dL (12.0-15.0); Lymphocytes % 10.3 % (15.3-44.8); MCH 29.6 pg (27.0-35.0); MCV 89.8 fL (80-100); MPV 8.7 fL (7.6-11.3); Monocytes % 6.9 % (3.3-12.3); Neutrophils % 81.9 % (41.7-73.7); Nucleated Red Blood Cells % 0.1 % (0-0); Platelets 211 thou/uL (152-406); Red Cell Distribution Width 13.8 % (12.1-15.2)
[2024-03-31 05:51] LABS: Albumin/Globulin Ratio 0.8 (1.1-1.8); Anion Gap 10.2 mEq/L (5.0-15.0); Bilirubin Total 0.5 mg/dL (0.2-1.0); Globulin 3.8 g/dL (2.3-3.5); Magnesium 1.7 mg/dL (1.6-2.4); Phosphorus 2.7 mg/dL (2.5-4.9); Potassium 3.2 mEq/L (3.5-5.1); Protein, Total 6.8 g/dL (6.4-8.2)
[2024-03-31] MEDS ORDERED: ENOXAPARIN 40 MG/0.4 ML SQ ONE ×2 (08:00→09:00)
[2024-03-31] MEDS ORDERED: BISOPROLOL PO SCH (09:00)
[2024-03-31] MEDS: ASPIRIN 325 MG TAB PO SCH (09:00)
[2024-03-31] MEDS: ATORVASTATIN 40 MG TAB PO SCH (09:00)
[2024-03-31] MEDS ORDERED: BISOPROLOL 5 MG TABLET PO SCH (09:00)
[2024-03-31] MEDS: BISOPROLOL/HCTZ 2.5/6.25MG TAB PO SCH (09:00)
[2024-03-31] MEDS ORDERED: HOME MED 1 EA UNK (Simvastatin [Simvastatin] 80 MG Tablet) PO SCH (09:00)
[2024-03-31] MEDS ORDERED: BISOPROLOL/HCTZ 5/6.25MG TAB PO SCH (09:00)
[2024-03-31] MEDS ORDERED: HCTZ PO SCH (09:00)
[2024-03-31] MEDS: BISOPROLOL 5 MG TABLET PO SCH (09:00)
[2024-03-31] MEDS: ENOXAPARIN 40 MG/0.4 ML SQ SCH (09:00)
--- NOTE | 2024-03-31 09:30 | P.PN ---
Subjective Date of Service: 03/31/24 Primary Care Provider: Dione Chief Complaint: Pain in hip Subjective: New changes Patient of mine residing in [facility] assisted living facility. The patient has a history of dementia and htn. She initially was placed on antidepressants as she was trying to leave the facility last month. Simple attempting to walk out. The patient has recently been sleeping till noon. Her bisopropol was stopped. Was seen yesterday when her risperdone and escitalopram were stopped. She was mentally awake and walking when seen yesterday. She was just sleeping too much. Unfortunately she fell out of her bed last night and was sent to the ER. She was found to have a Pelvic fracture. She is arousable this morning. States her pain is well controlled. Review of Systems 10-point ROS is otherwise unremarkable Musculoskeletal: Other (hip pain ) Physical Examination - Vital Signs Temperature: 98.4 F Blood Pressure: 185/89 Pulse: 79 Respirations: 16 Pulse Ox (%): 97 - Physical Exam General: Alert, In no apparent distress HEENT: Atraumatic, PERRLA, EOMI Neck: Supple, JVD not distended Respiratory: Clear to auscultation bilaterally, Normal air movement Cardiovascular: Regular rate/rhythm, Normal S1 S2 Gastrointestinal: Normal bowel sounds, No tenderness Musculoskeletal: No tenderness Integumentary: No rashes Neurological: Normal speech, Normal tone, Normal affect Lymphatics: No axilla or inguinal lymphadenopathy - Studies Laboratory Data (last 24 hrs) 03/30/24 03/30/24 03/30/24 22:49 20:16 19:51 WBC 4.30 Hgb 11.3 L Hct 33.0 L Plt Count 238 PT 10.5 INR 0.94 Sodium 140 Potassium 3.4 L BUN 16 Creatinine 0.98 Glucose 144 H Assessment And Plan - Current Problems (Diagnosis) (1) Pelvic fracture Current Visit: Yes Status: Acute Plan: consult to Dr. Magallanes Qualifiers: Encounter type: initial encounter Pelvic bone location: other part of pelvis Fracture type: closed Qualified Code(s): S32.89XA - Fracture of other parts of pelvis, initial encounter for closed fracture (2) Dementia Current Visit: Yes Status: Acute Plan: will restart the namenda that was started on yesterday. She may need place ment. However will await Dr. Magallanes and PT's assesment Qualifiers: Dementia type: unspecified type Dementia severity: mild Dementia behavioral or psychological symptom: without behavioral, psychotic, or mood disturbance or anxiety Qualified Code(s): F03.A0 - Unspecified dementia, mild, without behavioral disturbance, psychotic disturbance, mood disturbance, and anxiety Discharge Plan: Home Plan to discharge in: Greater than 2 days - Code Status/Comfort Care Code Status Assessed: No Physician Review: Patient Assessed, Agree with Above Assessment and Plan Critical Care: No Time Spent Managing PTS Care (In Minutes): 40
[2024-03-31] MEDS ORDERED: NA CHLORIDE 0.9% 1,000 ML ONE (10:30)
[2024-03-31] MEDS ORDERED: ASPIRIN EC 325 MG TABLET PO ONE (10:30)
[2024-03-31] MEDS: NA CHLORIDE 0.9% 1,000 ML IV SCH (10:53)
[2024-03-31] MEDS ORDERED: HYDROCODONE/APAP 5/325 MG TAB ONE (16:51)
[2024-03-31] MEDS: HYDROCODONE/APAP 5/325 MG TAB PO PRN (16:58)
--- NOTE | 2024-03-31 20:48 | CON ---
Reason For Consultation: Pubic ramus fracture. History Of Present Illness: The patient sustained a fall in her home resulting in a mildly displaced right superior pubic ramus fracture, visualized on CT scan. There is also a concomitant sacral frac ture. This is a nonoperative injury. Weightbearing as tolerated. She will be admitted to the [facility] for pain control and progressive physical therapy. DARREL Voice ID: [id number] Report ID: [id number]
--- NOTE | 2024-04-01 08:27 | P.PN ---
Subjective Date of Service: 04/01/24 Primary Care Provider: Dione Chief Complaint: Pain in hip Subjective: No new changes Patient of mine residing in [facility] assisted living facility. The patient has a history of dementia and htn. She initially was placed on antidepressants as she was trying to leave the facility last month. Simple attempting to walk out. The patient has recently been sleeping till noon. Her bisopropol was stopped. Was seen yesterday when her risperdone and escitalopram were stopped. She was mentally awake and walking when seen yesterday. She was just sleeping too much. Unfortunately she fell out of her bed last night and was sent to the ER. She was found to have a Pelvic fracture. She is arousable this morning. States her pain is well controlled. Review of Systems 10-point ROS is otherwise unremarkable Physical Examination - Vital Signs Temperature: 97.6 F Blood Pressure: 193/71 Pulse: 81 Respirations: 16 Pulse Ox (%): 94 - Physical Exam General: Alert, In no apparent distress HEENT: Atraumatic, PERRLA, EOMI Neck: Supple, JVD not distended Respiratory: Clear to auscultation bilaterally, Normal air movement Cardiovascular: Regular rate/rhythm, Normal S1 S2 Gastrointestinal: Normal bowel sounds, No tenderness Musculoskeletal: No tenderness Integumentary: No rashes Neurological: Normal speech, Normal tone, Normal affect Lymphatics: No axilla or inguinal lymphadenopathy Assessment And Plan - Current Problems (Diagnosis) (1) Pelvic fracture Current Visit: Yes Status: Acute Plan: consult to Dr. Magallanes 04/01 No plans for surgery. Will have her seen by PT. and plan for discharge either home with Home health or LTAC Qualifiers: Encounter type: initial encounter Pelvic bone location: other part of pelvis Fracture type: closed Qualified Code(s): S32.89XA - Fracture of other parts of pelvis, initial encounter for closed fracture (2) Dementia Current Visit: Yes Status: Acute Plan: will restart the namenda that was started on yesterday. She may need placement. However will await Dr. Magallanes and PT's assesment Qualifiers: Dementia type: unspecified type Dementia severity: mild Dementia behavioral or psychological symptom: without behavioral, psychotic, or mood disturbance or anxiety Qualified Code(s): F03.A0 - Unspecified dementia, mild, without behavioral disturbance, psychotic disturbance, mood disturbance, and anxiety (3) HTN (hypertension) Current Visit: Yes Status: Acute Plan: start lisinopril Qualifiers: Hypertension type: primary hypertension Qualified Code(s): I10 - Essential (primary) hypertension Discharge Plan: Home Plan to discharge in: 48 Hours - Code Status/Comfort Care Code Status Assessed: No Physician Review: Patient Assessed, Agree with Above Assessment and Plan Critical Care: No Time Spent Managing PTS Care (In Minutes): 20
[2024-04-01] MEDS: lisinopriL 10 MG TAB PO SCH (08:49)
[2024-04-01] MEDS: HYDRALAZINE HCL 20 MG/ML VIAL IV PRN (16:57)
[2024-04-02 07:55] VITALS: BMI 27.0
[2024-04-02] MEDS: MAGNESIUM SULFATE 1 gm IVPB 1 GM/100 ML BAG IV ONE (08:00)
[2024-04-02] MEDS: POTASSIUM CL SA 10 MEQ TAB PO ONE (08:20)
--- NOTE | 2024-04-02 08:55 | P.PN ---
Subjective Date of Service: 04/02/24 Primary Care Provider: Dione Chief Complaint: Pain in hip no plans for surgery. awaiting placement in [facility] for snf. Review of Systems 10-point ROS is otherwise unremarkable Physical Examination - Vital Signs Temperature: 97.8 F Blood Pressure: 174/78 Pulse: 89 Respirations: 16 Pulse Ox (%): 95 - Physical Exam General: Alert, In no apparent distress HEENT: Atraumatic, PERRLA, EOMI Neck: Supple, JVD not distended Respiratory: Clear to auscultation bilaterally, Normal air movement Cardiovascular: Regular rate/rhythm, Normal S1 S2 Gastrointestinal: Normal bowel sounds, No tenderness Musculoskeletal: No tenderness Integumentary: No rashes Neurological: Normal speech, Normal tone, Normal affect Lymphatics: No axilla or inguinal lymphadenopathy Assessment And Plan - Current Problems (Diagnosis) (1) Pelvic fracture Current Visit: Yes Status: Acute Plan: consult to Dr. Magallanes 04/01 No plans for surgery. Will have her seen by PT. and plan for discharge either home with Home health or LTAC Qualifiers: Encounter type: initial encounter Pelvic bone location: other part of pelvis Fracture type: closed Qualified Code(s): S32.89XA - Fracture of other parts of pelvis, initial encounter for closed fracture (2) Dementia Current Visit: Yes Status: Acute Plan: will restart the namenda that was started on yesterday. She may need placement. However will await Dr. Magallanes and PT's assesment Qualifiers: Dementia type: unspecified type Dementia severity: mild Dementia behavioral or psychological symptom: without behavioral, psychotic, or mood disturbance or anxiety Qualified Code(s): F03.A0 - Unspecified dementia, mild, without behavioral disturbance, psychotic disturbance, mood disturbance, and anxiety (3) HTN (hypertension) Current Visit: Yes Status: Acute Plan: start lisinopril Qualifiers: Hypertension type: primary hypertension Qualified Code(s): I10 - Essential (primary) hypertension Discharge Plan: Home Physician Review: Patient Assessed, Agree with Above Assessment and Plan Critical Care: No Time Spent Managing PTS Care (In Minutes): 20
[2024-04-03 11:16] LABS: Specific Gravity 1.008 (1.005-1.030); Urine Bilirubin NEGATIVE (Negative); Urine Blood Negative (Negative); Urine Clarity Clear (Clear); Urine Color Colorless (Yellow); Urine Glucose NEGATIVE (Negative); Urine Ketones NEGATIVE (Negative); Urine Microscopic Reflex YN NO UMIC; Urine Nitrite NEGATIVE (Negative); Urine Protein NEGATIVE (Negative); Urine Urobilinogen Normal (Normal)
--- NOTE | 2024-04-03 14:16 | P.PN ---
Subjective Date of Service: 04/03/24 Primary Care Provider: Dione Chief Complaint: Pain in hip no plans for surgery. awaiting placement in [facility] for snf. Review of Systems 10-point ROS is otherwise unremarkable Physical Examination - Vital Signs Temperature: 98.4 F Blood Pressure: 148/72 Pulse: 75 Respirations: 18 Pulse Ox (%): 96 - Physical Exam General: Alert, In no apparent distress HEENT: Atraumatic, PERRLA, EOMI Neck: Supple, JVD not distended Respiratory: Clear to auscultation bilaterally, Normal air movement Cardiovascular: Regular rate/rhythm, Normal S1 S2 Gastrointestinal: Normal bowel sounds, No tenderness Musculoskeletal: No tenderness Integumentary: No rashes Neurological: Normal speech, Normal tone, Normal affect Lymphatics: No axilla or inguinal lymphadenopathy Assessment And Plan - Current Problems (Diagnosis) (1) Pelvic fracture Current Visit: Yes Status: Acute Plan: consult to Dr. Magallanes 04/01 No plans for surgery. Will have her seen by PT. and plan for discharge either home with Home health or LTAC Qualifiers: Encounter type: initial encounter Pelvic bone location: other part of pelvis Fracture type: closed Qualified Code(s): S32.89XA - Fracture of other parts of pelvis, initial encounter for closed fracture (2) Dementia Current Visit: Yes Status: Acute Plan: will restart the namenda that was started on yesterday. She may need placement. However will await Dr. Magallanes and PT's assesment Qualifiers: Dementia type: unspecified type Dementia severity: mild Dementia behavioral or psychological symptom: without behavioral, psychotic, or mood disturbance or anxiety Qualified Code(s): F03.A0 - Unspecified dementia, mild, without behavioral disturbance, psychotic disturbance, mood disturbance, and anxiety (3) HTN (hypertension) Current Visit: Yes Status: Acute Plan: start lisinopril Qualifiers: Hypertension type: primary hypertension Qualified Code(s): I10 - Essential (primary) hypertension Discharge Plan: Home Plan to discharge in: 24 Hours Physician Review: Patient Assessed, Agree with Above Assessment and Plan Critical Care: No Time Spent Managing PTS Care (In Minutes): 20
[2024-04-03] MEDS: ACETAMINOPHEN 325 MG TABLET PO PRN (18:56)
[2024-04-04 13:30] LABS: Anion Gap 9.1 mEq/L (5.0-15.0); Magnesium 2.2 mg/dL (1.6-2.4); Potassium 4.1 mEq/L (3.5-5.1)
--- NOTE | 2024-04-04 13:51 | P.PN ---
Subjective Date of Service: 04/04/24 Primary Care Provider: Dione Chief Complaint: Pain in hip Subjective: No new changes no plans for surgery. awaiting placement in [facility] for snf. Review of Systems 10-point ROS is otherwise unremarkable Physical Examination - Vital Signs Temperature: 97.6 F Blood Pressure: 127/81 Pulse: 72 Respirations: 12 Pulse Ox (%): 93 - Physical Exam General: Alert, In no apparent distress HEENT: Atraumatic, PERRLA, EOMI Neck: Supple, JVD not distended Respiratory: Clear to auscultation bilaterally, Normal air movement Cardiovascular: Regular rate/rhythm, Normal S1 S2 Gastrointestinal: Normal bowel sounds, No tenderness Musculoskeletal: No tenderness Integumentary: No rashes Neurological: Normal speech, Normal tone, Normal affect Lymphatics: No axilla or inguinal lymphadenopathy Assessment And Plan - Current Problems (Diagnosis) (1) Pelvic fracture Current Visit: Yes Status: Acute Plan: consult to Dr. Magallanes 04/01 No plans for surgery. Will have her seen by PT. and plan for discharge either home with Home health or LTAC Qualifiers: Encounter type: initial encounter Pelvic bone location: other part of pelvis Fracture type: closed Qualified Code(s): S32.89XA - Fracture of other parts of pelvis, initial encounter for closed fracture (2) Dementia Current Visit: Yes Status: Acute Plan: will restart the namenda that was started on yesterday. She may need placement. However will await Dr. Magallanes and PT's assesment Qualifiers: Dementia type: unspecified type Dementia severity: mild Dementia behavioral or psychological symptom: without behavioral, psychotic, or mood disturbance or anxiety Qualified Code(s): F03.A0 - Unspecified dementia, mild, without behavioral disturbance, psychotic disturbance, mood disturbance, and anxiety (3) HTN (hypertension) Current Visit: Yes Status: Acute Plan: start lisinopril Qualifiers: Hypertension type: primary hypertension Qualified Code(s): I10 - Essential (primary) hypertension Discharge Plan: LTAC Plan to discharge in: 24 Hours - Code Status/Comfort Care Code Status Assessed: No Physician Review: Patient Assessed, Agree with Above Assessment and Plan Critical Care: No Time Spent Managing PTS Care (In Minutes): 20
[2024-04-05 10:36] VITALS: O2SAT 97
[2024-04-05 11:57] VITALS: BP 116/66; TEMP 98.7
--- NOTE | 2024-04-05 12:23 | P.DS ---
Admission Date: 03/30/24 Discharge Date: 04/05/24 Primary Care Provider: Dione Disposition: TRANSFER TO SNF - REHAB Discharge Condition: GOOD Reason for Admission: Pain in hip - Problems (1) Pelvic fracture Current Visit: Yes Status: Acute Qualifiers: Encounter type: initial encounter Pelvic bone location: other part of pelvis Fracture type: closed Qualified Code(s): S32.89XA - Fracture of other parts of pelvis, initial encounter for closed fracture (2) Dementia Current Visit: Yes Status: Acute Qualifiers: Dementia type: unspecified type Dementia severity: mild Dementia behavioral or psychological symptom: without behavioral, psychotic, or mood disturbance or anxiety Qualified Code(s): F03.A0 - Unspecified dementia, mild, without behavioral disturbance, psychotic disturbance, mood disturbance, and anxiety (3) HTN (hypertension) Current Visit: Yes Status: Acute Qualifiers: Hypertension type: primary hypertension Qualified Code(s): I10 - Essential (primary) hypertension Brief History of Present Illness: Patient fell in the assisted living facility. She was on a lot of medications as she was trying to leave the facility. She had these weaned when she started sleeping too much Unfortunately she fell the day after we stopped the antipsychotics. Was sent to the ER. Found to have a pelvic fracture. Hospital Course: patient was seen by Dr. Farrell. No need for surgery. She is very confused She has placement in a SNF facility for rehab. The patient repeatedly asks where she is. States she can walk. However she needs assistance for transferring. Thinks she is still working. This was a chronic condition. She would states this in [facility] as well. Will discharge her to SNF for PT. Hopefully we can then get her back to [facility]. Vital Signs/Physical Exam: Temp Pulse Resp BP Pulse Ox 98.7 F 72 17 116/66 95 04/05/24 11:56 04/05/24 11:56 04/05/24 11:56 04/05/24 11:56 04/05/24 11:56 General: Alert, In no apparent distress, Oriented x1 HEENT: Atraumatic, PERRLA, EOMI Neck: Supple, JVD not distended Respiratory: Clear to auscultation bilaterally, Normal air movement Cardiovascular: Regular rate/rhythm, Normal S1 S2 Gastrointestinal: Normal bowel sounds, No tenderness Musculoskeletal: No tenderness Integumentary: No rashes Neurological: Normal speech, Normal tone, Normal affect Lymphatics: No axilla or inguinal lymphadenopathy Laboratory Data at Discharge: WBC 7.00 thou/uL (4.3-10.9) 03/31/24 05:12 Hgb 11.6 g/dL (12.0-15.0) L 03/31/24 05:12 Hct 35.0 % (36.0-45.0) L 03/31/24 05:12 Plt Count 211 thou/uL (152-406) 03/31/24 05:12 PT 10.5 SECONDS (9.4-12.5) 03/30/24 22:49 INR 0.94 03/30/24 22:49 Sodium 133 mEq/L (136-145) L 04/04/24 13:05 Potassium 4.1 mEq/L (3.5-5.1) 04/04/24 13:05 BUN 16 mg/dL (7-18) 04/04/24 13:05 Creatinine 0.69 mg/dL (0.55-1.02) 04/04/24 13:05 Glucose 117 mg/dL (74-106) H 04/04/24 13:05 Phosphorus 2.7 mg/dL (2.5-4.9) 03/31/24 05:12 Magnesium 2.2 mg/dL (1.6-2.4) 04/04/24 13:05 Total Bilirubin 0.5 mg/dL (0.2-1.0) 03/31/24 05:12 AST 25 U/L (15-37) 03/31/24 05:12 ALT 20 U/L (13-56) 03/31/24 05:12 Alkaline Phosphatase 76 U/L (45-117) 03/31/24 05:12 Home Medications: Aspirin 325 mg PO DAILY 10/03/15 Acetaminophen 325 mg PO Q6HR PRN 03/31/24 Hydroxyzine HCl [Atarax] 10 mg PO Q12HR PRN 03/31/24 Mirtazapine [Remeron] 15 mg PO BEDTIME 03/31/24 Omeprazole [Prilosec] 40 mg PO DAILY 03/31/24 Memantine HCl [Memantine HCl ER] 21 mg PO DAILY 90 Days #90 tab 04/05/24 New Medications: Memantine HCl [Memantine HCl ER] 21 mg PO DAILY 90 Days #90 tab Diet: Regular Activity: Fall precautions Followup: Darron Parham MD [Primary Care Provider] - Time spent managing pt's care (in minutes): 30
== END 2024-04-05 16:18 | DRG 536 ==
LOC: ER 19:35 → ERHOLD 23:01 → 2ND 03-31 21:14
PROVIDERS: ADMIT Family Medicine; ATTEND Internal Medicine
DX: S32.511A Fracture of superior rim of right pubis, initial encounter for closed fracture (principal); S32.14XA Type 1 fracture of sacrum, initial encounter for closed fracture; E78.5 Hyperlipidemia, unspecified; I10 Essential (primary) hypertension; F03.A0 Unspecified dementia, mild, without behavioral disturbance, psychotic disturbance, mood disturbance, and anxiety; Z88.0 Allergy status to penicillin; Z88.2 Allergy status to sulfonamides; Z88.5 Allergy status to narcotic agent; Z79.82 Long term (current) use of aspirin; Z79.899 Other long term (current) drug therapy; W06.XXXA Fall from bed, initial encounter; Y93.9 Activity, unspecified; Y92.092 Bedroom in other non-institutional residence as the place of occurrence of the external cause; Y99.9 Unspecified external cause status
CPT/HCPCS: 36415; 70450; 72125; 72131; 72192; 80048; 80053; 81003; 83735; 84100; 85025; 85610; 94760; 96372; 97110; 97161; 97530; 99284; J0360; J1650; J3486; J7030; Q0162